=== PATIENT | female | born 1995 | race African-American/Black ===

== ENCOUNTER 2017-08-22 09:14 | Emergency (ER) | payer BC, OTHER ==
[~2017-08-22] VITALS: Ht 175.3 cm; Wt 93.4 kg
[2017-08-22] MEDS ORDERED: PRENATAL PO (09:27)
[2017-08-22] MEDS ORDERED: AMOXICILLIN 50500 MG PO (09:33)
[2017-08-22 09:41] VITALS: BP 109/45
== END 2017-08-22 09:42 | disposition home or self-care (01) ==
LOC: M.ERS 09:14
DX: J06.9 Acute upper respiratory infection, unspecified (principal)

== ENCOUNTER 2017-08-26 08:07 | Emergency (ER) | payer BC, OTHER ==
[~2017-08-26] VITALS: Ht 175.3 cm; Wt 93.4 kg
[~2017-08-26 08:07] MED LIST: AMOXICILLIN 50500 MG PO; PRENATAL PO
[2017-08-26] MEDS ORDERED: AMOXICILLIN 50500 MG PO (08:15)
[2017-08-26] MEDS ORDERED: VENTOLIN HFA 1818 GM INH (08:15)
[2017-08-26 08:42] VITALS: BP 118/45
== END 2017-08-26 08:42 | disposition home or self-care (01) ==
LOC: M.ERS 08:07
DX: H10.89 Other conjunctivitis (principal)

== ENCOUNTER 2018-07-06 09:41 | Emergency (ER) | payer BC, OTHER ==
[~2018-07-06] VITALS: Ht 175.3 cm; Wt 98.9 kg
[~2018-07-06 09:41] MED LIST changes: +VENTOLIN HFA 1818 GM INH
[2018-07-06 10:48] LABS: INFLUENZA A ANTIGEN None Detected (None Detect); INFLUENZA B ANTIGEN None Detected (None Detect)
[2018-07-06] MEDS ORDERED: ZPAK PO (10:55)
[2018-07-06] MEDS ORDERED: TESSALON PERLE100 M1 PO ×2 (10:55→10:59)
[2018-07-06] MEDS ORDERED: AMOXICILLIN 50500 MG PO (10:59)
[2018-07-06 11:02] VITALS: BP 131/86
== END 2018-07-06 11:03 | disposition home or self-care (01) ==
LOC: M.ERS 09:41
PROVIDERS: Nurse Practitioner Family
DX: J06.9 Acute upper respiratory infection, unspecified (principal)